=== PATIENT | female | born 1960 | race Caucasian/White ===

== ENCOUNTER 2018-06-25 11:06 | Emergency (ER) | payer OTHER ==
[2018-06-25 11:16] VITALS: BP 128/76
--- OUTSIDE RECORDS SUMMARY | 2018-06-25 11:27 | XMS REPORT ---
:1960 External Reference #:[id number] Author Organization [facility] Address [address] [place] [address] Phone [phone] Care Team Providers Name Role Phone Reyna Colon M.D. Care Team Information Ux Ui Designer Unavailable Reyna Colon M.D. Primary Care Physician Unavailable Payers Type Date Identification Numbers Payment Provider Subscriber Health Maintenance Policy Number: [id number] [facility] Maximo Duran Organization (HMO) Group Number: [id number] [address] PayID: [id number] [place] [address] Medigap Part B Effective: 10/05/2017 Policy Number: Toribio Duran [id number] PayID: [id number] [address] [place] [address] Problems Date Description Provider Status Onset: 04/22/2017 Osteopenia Reyna Colon M.D. Active Onset: 02/18/2013 Nonvenomous insect bite of thigh David Ram M.D. Resolved without infection Resolved: 09/05/2016 Family History Date Family Member(s) Problem(s) Comments Father due to Unknown Causes () - went back to [facility] after her mother . Mother Hypertension Mother due to COPD () - age 69 Mother Chronic Obstructive Pulmonary Disease (COPD) First Brother healthy. [place] Social History Type Date Description Comments Marital Status Patient is , works at [employer]. Occupation screenwriter [employer] Cigarette Use Never Smoked Cigarettes ETOH Use Social Alcohol a few glasses of wine on the weekends. Smoking Patient has never smoked Exercise Type/Frequency Does aerobics 3 x/week judo Current 2x a week, walks the dogs daily. Allergies, Adverse Reactions, Alerts Date Description Reaction Status Severity Comments 04/22/2017 Omeprazole severe NORMAN active Medications Medication Date Status Form Strength Qnty SIG Indications Ordering Provider Multivitamins Active Capsules 1 po qd Unknown /0000 Vitamin D 00 Active Tablets 1000Unit 1 po qd Unknown /0000 Glucosamine Active Capsules daily Unknown Chondroitin /0000 Beano Active Tablets prn Unknown / Doxycycline 07/29 Hx Tablets 100mg 2tabs 2 by mouth by mouth Isaiah, - x1 M.D. 06/11 No Active 09/05 Hx Unknown Medications /2015 - 09/05 Omeprazole 09/05 Hx Capsules 40mg 30cap take [address] cm capsule by Isaiah, - mouth M.DClifford 12/02 morning, 30 minutes before meal Clotrimazole/Betam 07/25 Hx Cream 1-0.05% 30gm apply to 110.5 Sveta ethasone /2013 affected Sheng, Dipropionate - area twice CURATOR 09/05 a day /2015 No Active 04/05 Hx Unknown Medications /2012 - 07/25 Methylprednisolone 03/29 Hx Tablets 4mg 1pk as 692.6 Teetee Dose Pack /2012 directed [place] Afnp-C 04/05 No Active 02/18 Hx Unknown Medications /2012 - 02/18 Doxycycline 02/18 Hx Capsules 100mg 14cap use 2 David Myers cl s Pills AT [facility], - Once M.D. 03/29 Doxycline 08/05 Hx Capsules 100mg 2caps 2 po 910.4 Elton Suarez /2009 Bridget, - M.DClifford 08/06 PT 06/29 Hx R Knee Karis /2006 Pain--HX Faizan, - Old Injury Afnp-C 08/13 Please Evaluate And Treat For Pain Relief And Prevention Knee Immobilizer 03/19 Hx use as Karis /2006 directed-- Faizan - R Knee Afnp-C 04/02 Injury /2006 Physical Therapy 12/26 Hx treatment Andre Myers /2004 and Dao - talita M.DClifford 12/16 For Right /2006 Clavicle Immunizations CPT Code Status Date Vaccine Lot # [id number] Given 08/14/2016 Influenza Vac, Quadriv[place], [place] [address] Given 07/26/2015 Influenza Vac, [place]riv[place], [place] [address] Given 07/25/2014 DO Not Use Split Influenza Virus Vaccine [id number] Given 08/12/2012 DO Not Use Split Influenza Virus Vaccine 85071 Given 08/08/2011 DO Not Use Split Influenza Virus Vaccine 15700 Given 08/05/2010 DO Not Use Split Influenza Virus Vaccine [id number] Vital Signs Date Vital Result Comment 06/11/2018 BP Systolic 120 mmHg BP Diastolic 68 mmHg Heart Rate 80 /min Body Temperature 98.7 F Respiratory Rate 18 /min Height 64 inches 5'4" Weight 132.00 lb BMI (Body Mass Index) 22.7 kg/m2 04/22/2017 BP Systolic 118 mmHg BP Diastolic 80 mmHg Heart Rate 102 /min Body Temperature 97.9 F Respiratory Rate 16 /min Height 64 inches 5'4" measured 04/22/17 Weight 135.25 lb BMI (Body Mass Index) 23.2 kg/m2 Right Visual Acuity Distance 20/20 corrected Left Visual Acuity Distance 20/20 corrected 09/05/2016 BP Systolic 160 mmHg BP Diastolic 80 mmHg Heart Rate 96 /min Body Temperature 98.2 F Height 64.25 inches 5'4.25" Weight 134.00 lb BMI (Body Mass Index) 22.8 kg/m2 07/25/2014 BP Systolic 130 mmHg BP Diastolic 86 mmHg Heart Rate 112 /min Body Temperature 97.9 F Respiratory Rate 16 /min Height 64.25 inches 5'4.25" Weight 136.00 lb BMI (Body Mass Index) 23.2 kg/m2 03/29/2013 BP Systolic 110 mmHg BP Diastolic 78 mmHg Heart Rate 84 /min Body Temperature 97.8 F Height 64.25 inches 5'4.25" Weight 137.00 lb BMI (Body Mass Index) 23.3 kg/m2 02/18/2013 BP Systolic 140 mmHg BP Diastolic 86 mmHg Heart Rate 90 /min Body Temperature 97.4 F Respiratory Rate 17 /min Height 64.25 inches 5'4.25" Weight 136.00 lb BMI (Body Mass Index) 23.2 kg/m2 08/05/2010 BP Systolic 104 mmHg BP Diastolic 70 mmHg Heart Rate 84 /min Body Temperature 97.3 F Respiratory Rate 16 /min Height 64.25 inches 5'4.25" Weight 133.00 lb BMI (Body Mass Index) 22.6 kg/m2 03/28/2010 BP Systolic 124 mmHg BP Diastolic 60 mmHg Heart Rate 80 /min Body Temperature 98.2 F Respiratory Rate 16 /min Height 64.25 inches 5'4.25" Weight 138.00 lb BMI (Body Mass Index) 23.5 kg/m2 11/23/2009 BP Systolic 138 mmHg BP Diastolic 88 mmHg Heart Rate 100 /min Body Temperature 98.4 F Weight 137.00 lb 03/19/2007 BP Systolic 134 mmHg BP Diastolic 90 mmHg Heart Rate 96 /min Height 64.25 inches 5'4.25" 03/04/2007 BP Systolic 142 mmHg BP Diastolic 80 mmHg Heart Rate 88 /min Body Temperature 99.5 F Respiratory Rate 16 /min Height 64.25 inches 5'4.25" Weight 134.00 lb BMI (Body Mass Index) 22.8 kg/m2 12/16/2005 BP Systolic 110 mmHg BP Diastolic 70 mmHg Heart Rate 112 /min O2 % BldC Oximetry 99 % Height 64.25 inches 5'4.25" Weight 131.00 lb BMI (Body Mass Index) 22.3 kg/m2 12/10/2004 BP Systolic 142 mmHg BP Diastolic 92 mmHg Heart Rate 92 /min Height 64.25 inches 5'4.25" Weight 137.00 lb BMI (Body Mass Index) 23.3 kg/m2 Results Test Date Test Result H/L Range Note Comprehensive Metabolic Prof 05/28/2018 Sodium 138 mEq/L 134-149 Potassium 4.4 mEq/L 3.6-5.5 Chloride 101 mEq/L 94-112 Carbon Dioxide 27 mEq/L 21-32 Glucose 98 mg/dL 70-105 BUN 13 mg/dL 6-26 Creatinine 0.9 mg/dL 0.6-1.4 BUN/Creat Ratio 14.4 CALC 8.0-36.0 Calcium 8.9 mg/dL 8.6-10.2 Total Protein 6.6 g/dL 6.4-8.3 Albumin 4.5 g/dL 3.8-5.5 Globulin 2.1 g/dL 2.0-4.8 A/G Ratio 2.1 CALC 0.6-2.3 Alk. Phosphatase 62 U/L 30-110 Alt (SGPT) 21 U/L 7-35 Ast (Sgot) 24 U/L 5-34 Total Bilirubin 1.3 mg/dL 0.2-1.3 GFR Non- >60 ml/min/1.73m^ >=60 GFR >60 ml/min/1.73m^ >=60 Lipid Profile 05/28/2018 Cholesterol 204 mg/dL High 120-200 Triglycerides 58 mg/dL 30-200 HDL Cholesterol 60 mg/dL 30-85 LDL (Calculated) 132 CALC High 0-129 VLDL Cholesterol 12 mg/dL 0-50 HDL Risk Factor 3.4 CALC 0.0-4.4 CBC Electronic Fma 05/28/2018 WBC 4.4 x10^3/UL 4.0-10.0 RBC 4.01 x10^6/UL 3.93-6.00 HGB 12.7 g/dL 12.0-17.0 HCT 37 % 35-50 MCV 93.3 fL 80.0-95.0 MCH 31.7 pg 25.6-32.2 MCHC 34.0 g/dL 32.2-36.0 RDW-CV 12.2 % 11.6-14.4 PLT 256 x10^3/UL 163-400 MPV 12.0 fL 9.4-12.4 William# 2.12 x10^3/UL 1.56-6.13 Lymph# 1.70 x10^3/UL 1.18-3.74 Iredell# 0.38 x10^3/UL 0.24-0.82 Eos # 0.1 x10^3/UL 0.0-0.5 Baso # 0.04 x10^3/UL 0.01-0.08 William% 48.4 % 34.0-70.0 Lymph % 38.8 % 20.0-52.0 Iredell% 8.7 % 5.0-12.0 Eos% 3.0 % 0.7-7.0 Baso% 0.9 % 0.1-1.2 Laboratory test finding 05/28/2018 TSH 3.65 mIU/L 0.50-6.00 Comprehensive Metabolic Prof 04/15/2017 Sodium 144 mEq/L 134-149 Potassium 4.2 mEq/L 3.6-5.5 Chloride 105 mEq/L 94-112 Carbon Dioxide 25 mEq/L 21-32 Glucose 92 mg/dL 70-105 BUN 18 mg/dL 6-26 Creatinine 0.9 mg/dL 0.6-1.4 BUN/Creat Ratio 20.0 CALC 8.0-36.0 Calcium 9.7 mg/dL 8.6-10.2 Total Protein 7.2 g/dL 6.4-8.3 Albumin 4.6 g/dL 3.8-5.5 Globulin 2.6 g/dL 2.0-4.8 A/G Ratio 1.8 CALC 0.6-2.3 Alk. Phosphatase 57 U/L 30-110 Alt (SGPT) 19 U/L 7-35 Ast (Sgot) 23 U/L 5-34 Total Bilirubin 1.1 mg/dL 0.2-1.3 GFR Non- >60 ml/min/1.73m^ >=60 GFR >60 ml/min/1.73m^ >=60 Lipid Profile 04/15/2017 Cholesterol 209 mg/dL High 120-200 1 Triglycerides 90 mg/dL 30-200 HDL Cholesterol 57 mg/dL 30-85 LDL (Calculated) 134 CALC High 0-129 VLDL Cholesterol 18 mg/dL 0-50 HDL Risk Factor 3.7 CALC 0.0-4.4 Complete Blood Count 04/15/2017 WBC 4.4 x10^3/UL 3.6-9.6 RBC 4.34 x10^6/UL 3.90-5.70 HGB 13.9 g/dL 12.1-17.2 HCT 40 % 36-50 MCV 93.0 fL 82.2-97.4 MCH 32.1 pg 27.6-33.3 MCHC 34.4 g/dL 33.0-35.5 RDW 12.9 % 11.6-13.7 PLT 255 x10^3/UL 150-400 MPV 9.4 fL 7.4-10.4 Gran # 2.7 x10^3/UL 1.5-7.2 Lymph# 1.5 x10^3/UL 0.7-4.9 Iredell# 0.2 x10^3/UL 0.1-0.9 Gran % 59.0 % 42.2-75.2 Lymph % 35.7 % 20.5-51.1 Iredell% 5.3 % 1.7-9.3 Laboratory test finding 04/15/2017 TSH 3.68 mIU/L 0.50-6.00 Laboratory test finding 02/16/2017 Clotest SEE RESULT BELOW 2 Surgical Pathology SEE RESULT BELOW 3 Complete Blood Count 09/08/2016 WBC 5.5 x10^3/UL 3.6-9.6 RBC 4.31 x10^6/UL 3.90-5.70 HGB 13.6 g/dL 12.1-17.2 HCT 40 % 36-50 MCV 94.0 fL 82.2-97.4 MCH 31.5 pg 27.6-33.3 MCHC 33.6 g/dL 33.0-35.5 RDW 13.3 % 11.6-13.7 PLT 256 x10^3/UL 150-400 MPV 8.0 fL 7.4-10.4 Gran # 3.8 x10^3/UL 1.5-7.2 Lymph# 1.6 x10^3/UL 0.7-4.9 Iredell# 0.1 x10^3/UL 0.1-0.9 Gran % 66.4 % 42.2-75.2 Lymph % 30.3 % 20.5-51.1 Iredell% 3.3 % 1.7-9.3 Comprehensive Metabolic Prof 09/08/2016 Sodium 143 mEq/L 134-149 Potassium 4.5 mEq/L 3.6-5.5 Chloride 99 mEq/L 94-112 Carbon Dioxide 26 mEq/L 21-32 Glucose 105 mg/dL 70-105 BUN 19 mg/dL 6-26 Creatinine 1.0 mg/dL 0.6-1.4 BUN/Creat Ratio 19.0 CALC 8.0-36.0 Calcium 10.2 mg/dL 8.6-10.2 Total Protein 7.6 g/dL 6.4-8.3 Albumin 4.8 g/dL 3.8-5.5 Globulin 2.8 g/dL 2.0-4.8 A/G Ratio 1.7 CALC 0.6-2.3 Alk. Phosphatase 73 U/L 30-110 Alt (SGPT) 14 U/L 7-35 Ast (Sgot) 17 U/L 5-34 Total Bilirubin 1.0 mg/dL 0.2-1.3 GFR Non- >60 ml/min/1.73m^ >=60 GFR >60 ml/min/1.73m^ >=60 Lipid Profile 09/08/2016 Cholesterol 234 mg/dL High 120-200 Triglycerides 92 mg/dL 30-200 HDL Cholesterol 63 mg/dL 30-85 LDL (Calculated) 153 CALC High 0-129 VLDL Cholesterol 18 mg/dL 0-50 HDL Risk Factor 3.7 CALC 0.0-4.4 Laboratory test finding 09/08/2016 Magnesium, Serum 2.2 mEq/L High 1.2- 2.1 TSH 4.87 mIU/L 0.50-6.00 4 Laboratory test 09/08/2016 Hemoglobin A1c (Fma) 5.7 % 4.1-5.7 finding Laboratory test 03/28/2013 Tick Testing, B Negative 5 finding [facility] Surgical Pathology 05/31/2010 Surgical Pathology 6 <SEE NOTE> Laboratory test 03/28/2010 B12 996 pg/mL 230-1050 finding Methylmalonic Acid 03/28/2010 Methylmalonic Acid, 181 nmol/L 73-376 7 Serum Laboratory test 03/28/2010 Homocysteine 4.8 umol/L 0.0-15.0 finding Comprehensive 11/23/2009 Albumin 5.1 g/dL 3.8-5.5 Metabolic Prof Alk. Phos. 58 U/L 30-110 Alt (SGPT) 15 U/L 7-35 Ast (Sgot) 17 U/L 5-34 BUN 17 mg/dL 6-26 Calcium 9.8 mg/dL 8.6-10.2 Chloride 105 mEq/L 94-112 Creatinine 0.9 mg/dL 0.6-1.4 Carbon Dioxide 25 mEq/L 21-32 Glucose 114 mg/dL High 70-105 8 Sodium 141 mEq/L 134-149 Total Bilirubin 0.6 mg/dL 0.2-1.3 Total Protein 7.8 g/dL 6.3-8.1 Potassium 3.9 mEq/L 3.6-5.5 Globulin 2.7 g/dL 2.0-4.8 A/G Ratio 1.8 Calc 0.6-2.2 BUN/Creat Ratio 19.2 Calc 8.0-36.0 Laboratory test finding 11/23/2009 TSH 2.41 mIU/L 0.50-6.00 CBC (Fma) 11/23/2009 WBC 8.5 3.6-9.6 RBC 4.38 3.90-5.70 Hemoglobin (Fma/CMC/CTX) 13.6 g/dL 12.1 - 17.2 Hematocrit (Fma/CMC/CTX) 43.2 % 36.1 - 50.3 Mean Corpuscular Vol 98.6 High 82.2-97.4 Mean Corpuscular Hemaglobin 31.1 27.6-33.3 Mean Corpuscular Hemo Concen 31.5 Low 33.0-36.0 Platelets 285 10^3/ul 150-400 Lymph% 17.2 Low 20.5-51.1 Mixed% 3.9 Neutrophils % 78.9 RDW 12.9 11.6-13.7 Mean Platelet Volume 12.5 High 7.4-10.4 Lipid Profile (Trig/Chol/HDL) 10/23/2009 Triglyceride 136 mg/dL 40-200 Cholesterol 207 mg/dL High Less Than 200 9 High Density Lipoprotein 53 mg/dL 40-60 10 Cholesterol/HDL Ratio 3.91 AVERAGE 1-4.44 Low Density Lipoprotein 127 mg/dL High Less Than 100 11 Surgical Pathology 04/08/2007 Surgical Pathology <SEE 12 NOTE> Complete Blood 03/04/2007 WBC 7.2 x10\\S\\3/uL 3.6-9.6 Count Gran# 5.8 x10\\S\\3/uL 1.5-7.2 Gran% 81.1 % High 42.2-75.2 HCT 38 % 36-50 HGB 13.0 g/dL 12.1-17.2 Lymph# 1.2 x10\\S\\3/uL 0.7-4.9 Lymph% 17.0 % Low 20.5-51.1 MCH 32.3 pg 27.6-33.3 MCV 94.9 fL 82.2-97.4 MCHC 34.0 g/dL 33.0-35.5 Mo# 0.1 x10\\S\\3/uL 0.1-0.9 Mo% 1.9 % 1.7-9.3 MPV 11.4 fL High 7.4-10.4 PLT 267 x10\\S\\3/uL 150-400 RBC 4.04 x10\\S\\6/uL 3.90-5.70 RDW 12.7 % 11.6-13.7 Comprehensive Metabolic Prof 03/04/2007 Albumin 4.3 g/dL 3.8-5.5 Alk. Phos. 51 U/L 30-110 Alt (SGPT) 18 U/L 7-35 Ast (Sgot) 19 U/L 5-34 BUN 21 mg/dL 6-26 Calcium 9.5 mg/dL 8.6-10.2 Chloride 98 mEq/L 94-112 Creatinine 1.0 mg/dL 0.6-1.4 Carbon Dioxide 24 mEq/L 21-32 Glucose 111 mg/dL High 70-105 Sodium 141 mEq/L 134-149 Total Bilirubin 1.1 mg/dL 0.2-1.3 Total Protein 7.1 g/dL 6.3-8.1 Potassium 4.2 mEq/L 3.6-5.5 Globulin 2.8 g/dL 2.0-4.8 A/G Ratio 1.5 Calc 0.6-2.2 BUN/Creat Ratio 21.6 Calc 8.0-36.0 Endomysial AB,Iga 03/04/2007 Endomysial Antibody IgA Negative Negative Laboratory test finding 03/04/2007 Stool For Fat Screen NORMAL SCREEN Negative Stool For Polys 03/04/2007 Stool For WBCS (Polys) NONE SEEN Negative Fecal Fat Screen 03/04/2007 Stool Color BROWN Stool Consistency SOFT Stool Form SEMI-FORMED Laboratory test 03/04/2007 Fungal Cult [TRICHOSPORON MU <SEE 13 finding Other Sources NOTE> Laboratory test 12/16/2005 [facility] BMP;TROP;CBC See Image finding Report 1 consistent w/ previous results 2 SEE RESULT BELOW Name: MAIDA DURAN : [address]: Khris Dumont MD Acct: [id number] Unit: [id number] AGE: 57 Location: ENDO Re02/16/17 SEX: F Status: REG REF SPEC: [id number] RAFA: 02/16/17-[address] [facility] [address]: Khris Dumont MD REQ: [id number] RECD: 02/16/17 STATUS: CONG SCHMID DR: Reyna Colon MD _ SOURCE: GAS ANTRUM SPDESC: ORDERED: Clotest Procedure Result Reported Site Clotest Final 02/17/17- 0752 ML Clotest Negative * ML - MAIN LAB (PSC1) . END OF REPORT * ML=Testing performed at Main Lab DEPARTMENT OF PATHOLOGY, [address] [place] [address] Patrick Ordonez M.D. Director LASHONDA # [id number] 3 SEE RESULT BELOW Name: MAIDA DURAN : [address]: Khris Dumont MD Acct: [id number] Unit: [id number] AGE: 57 Location: ENDO Re02/16/17 SEX: F Status: REG REF SPEC: [id number] RAFA: 02/16/17-[address] [facility] [address]: Khris Dumont MD REQ: [id number] RECD: 02/16/171066 STATUS: KLEBER SCHMID DR: Reyna Colon MD _ ORDERED: LEVEL 4/2 FINAL DIAGNOSIS 1. Duodenum, biopsy: -- Benign small intestinal mucosa with no significant pathologic abnormalities. -- No evidence of villous blunting or increased intraepithelial lymphocytes. 2. Colon, rectum, biopsy: -- Hyperplastic polyp. CLINICAL HISTORY Lower upper quadrant jayne POST-OPERATIVE DIAGNOSIS Esophagus - normal; stomach - normal, biopsied; duodenum - normal, biopsied. Colonoscopy to terminal ileum - rectal polyp biopsied GROSS DESCRIPTION 1. The specimen is received in formalin labeled, Biopsy Duodenum, and consists of a 0.6 x 0.2 x 0.1 cm raymond-pink irregular to polypoid soft tissue fragment which is entirely submitted in one cassette. 2. The specimen is received in formalin labeled, Biopsy Rectal Polyp, and consists of two raymond-white irregular to polypoid soft tissue fragments measuring 0.2 x 0.1 x 0.1 cm and 0.5 x 0.2 x 0.2 cm which are entirely submitted in one cassette. Signed (signature on file) Sveta Gaytan MD 1204 END OF REPORT * ML=Testing performed at Main Lab DEPARTMENT OF PATHOLOGY, [address] [place] [address] Patrick Ordonez M.D. Director [facility] # [id number] FASTING 5 Tick testing does not diagnose Lyme disease in humans. Results indicate only whether or not B. burgdorferi was detected in the tick. If you believe you have any symptoms of Lyme disease consult your physician immediately. 6 --- RUN DATE: 06/04/10 [facility] NMI LIVE PAGE 1 RUN TIME: 3375 Specimen Inquiry RUN USER: INTERFACE -- Name: MAIDA DURAN Status: REG REF Re05/31/10 Age/Sex: 50/F Unit#: [id number] [facility] [birth year] -- Specimen: [id number] SOUT Spec Date: 05/31/[address]: Andriy parks MD Spec Type: SURGICAL P Received: 06/03/10 Copies to: Elton edgar MD SPECIMEN EXCISION SKIN LESION LEFT LATERAL ARM HISTORY PRE-OP DIAGNOSIS: Rule out dysplastic nevus CLINICAL INFORMATION: Changing pigmented macule GROSS DESCRIPTION The specimen is received in formalin labelled Maida Duran, Excision Skin Lesion Left Lateral Arm, and consists of a skin excision measuring 0.5 x 0.4 x 0.4 cm. with a raymond-white skin and a dark brown macular lesion located in the center of the specimen measuring up to 0.3 cm. The specimen is bisected and submitted entirely, one cassette. DIAGNOSIS Skin, left lateral arm, excision: A. Solar lentigo. B. No evidence of melanocytic proliferation. Signed Electronically by: WADE MCDANIELS 06/04/10 1455 -- -- DEPARTMENT OF PATHOLOGY, [address] [place] [address] [facility] Permit #[id number] Patrick Ordonez M.D. Director Wade Mcdaniels M.D. Marine Fire[employer] Dir rodriguez -- 7 The reference range for methylmalonic acid has been set at +3sd above the mean for healthy blood bank donors. In the clinical assessment of patients with megaloblastic anemias a cutoff of +3sd provides greater specificity in the diagnosis of the vitamin deficiency states, despite the sacrifice of some sensitivity. 8 RESULT SARAH'D 9 CHOLESTEROL INTERPRETATION: Desirable: Less than 200 MG/DL Borderline-High Risk: 200-239 MG/DL High-Risk: 240 MG/DL and over 10 HDL INTERPRETATION: Undesirable: High Risk: Less than 40 MG/DL Desirable: Low Risk: Greater than 60 MG/DL 11 LDL INTERPRETATION: Low Risk Optimal Level: LDL Less than 100 MG/DL Near or Above Optimal: LDL 100-129 MG/DL Borderline High Risk: LDL 130-159 MG/DL High Risk: LDL 160-189 MG/DL Very High Risk: LDL Greater than 189 MG/DL 12 ---- RUN DATE: 04/09/07 [facility] NMI LIVE PAGE 1 RUN TIME: 1529 Specimen Inquiry RUN USER: INTERFACE [id number] MAIDA DURAN 47/F <REG REF 04/08> ([id number]) Khris Lowery MD -- Specimen: [id number] SOUT Spec Date: 04/08/[address]: Khris tolbert MD Spec Type: SURGICAL P Received: 04/08/07-7952 Copies to: Elton edgar MD SPECIMEN BIOPSY COLON POLYP AT 25 CM. HISTORY CLINICAL INFORMATION: Patient for screening colonoscopy with increased ga s, loose stools, and hematochezia GROSS DESCRIPTION The specimen is received in formalin labelled Maida Duran, Biopsy Colon Polyp at 25 cm., and consists of one, 0.3 cm. raymond bit. Total, one block. DIAGNOSIS Colon, polyp at 25 cm., biopsy - Hyperplastic polyp. Signed Electronically by: GWENDOLYN GREWAL MD 04/09/07 1528 -- -- DEPARTMENT OF PATHOLOGY, [address] [place] [address] [facility] Permit #[id number] Gwendolyn Grewal II, M.D. Director Alem Serrano irector -- 13 [TRICHOSPORON MUCOIDES] NO ADDITIONAL GROWTH AFTER 3 WEEKS TRICHOSPORON MUCOIDES Procedures Date CPT Code Description Status Comment 06/11/2018 21287 [facility] Completed 10/09/2017 Mammogram Completed 04/22/2017 11700 [facility] Completed 04/22/2017 96643 Vision Test- screening test of visual Completed acuity, quantitative, bila 10/05/2016 Colonoscopy Completed normal 10 years 09/17/2016 Mammogram Completed 09/05/2016 44818 Electrocardiogram Complete Completed 04/24/2015 Mammogram Completed 12/22/2013 Mammogram Completed 11/09/2012 Mammogram Completed 12/16/2005 88093 Pulse Oximetry Completed 12/16/2005 04299 Electrocardiogram Complete Completed Encounters Type Date Location Provider CPT E/M Dx Office Visit 09/05/2016 3:30p [facility] Reyna Colon M.D. 02379 R00.2 K21.9 Office Visit 07/25/2014 11:30a Main Office INDIO Pires 28924 110.5 V04.81 Office Visit 03/29/2013 12:45p Main Office David Muir 24593 692.6 Office Visit 02/18/2013 3:00p Main Office David Ram M.D. 02763 916.4 E906.4 Office Visit 08/05/2010 1:00p [facility] Elton Gill M.D. 36934 910.4 V04.81 v04.81 Office Visit 03/28/2010 4:40p Main Office Elton Gill M.D. 31562 529.0 238.2 Office Visit 11/23/2009 2:00p Main Office David Ram M.D. 28764 781.1 Office Visit 03/19/2007 2:15p Main Office Karis HilDavid ocasio 45434 844.9 Office Visit 03/04/2007 11:15a Main Office Elton Gill M.D. 05966 787.99 Office Visit 12/16/2005 8:30a Main Office Elton Gill M.D. 12483 786.50 785.9 Office Visit 12/10/2004 9:45a [facility] Teetee CortesKulwinder-C 87766 719.41 Plan of Care 06/11/2018 - Dariela Bazzi M.D.Z00.00 Encntr for general adult medical exam w/o abnormal findingsComments:You are in excellent general health. I recommend regular physical exams with attention to good nutrition and exercise, eye exams every other year, and dental exams twice yearly. ~B_~U_Goals:~u_~b_2 fresh fruits daily3 helpings of fresh green and multicolored vegetablesEat from the whole color spectrum. 40-60 Oz water daily~B_~U_MOVE YOUR BODY.~u_~b_ Bodies were made to be moved. exercise 30 minutes at least 4-5 times weeklyAllComments:~B_~U_Medication Management~b_~u_ Patient Understands medications she's taking? Yes No Are there Barriers to Adherence? Yes No Has the patient been asked about herbal supplements and therapies, and OTC meds? Yes No
[2018-06-25] MEDS ORDERED: Fluorescein Sod TOPICAL 0.6* 0.6 MG TEST OPHTHALMIC ONE (11:50)
[2018-06-25] MEDS ORDERED: Tetracaine 0.5% OPTH.SOL 4 ML* 1 DROP BTL ONE (11:50)
[2018-06-25] MEDS ORDERED: Tetan/Diph/Pertus SYR(Tdap)* 0.5 ML SYR(BOOSTRIX) use SYR IM ONE (13:35)
--- NOTE | 2018-07-26 09:48 | ED ---
Throat Pain/Nasal Congestion - HPI Summary HPI Summary: PATIENT SEEN 06/25/2018 FOR THE FOLLOWING EVENT AND CARE: Pt presents w/ Lt eye irritation since suspected injury prior to arrival. She reports she pulled down life jackets from a shelf on a boat and feels a possible FB fell into her eye. Eye has been irritated since and watering. Pt tried flushing at home without relief. Pt does wear glasses/contact lenses. Denies any changes in vision, facial pain/burning. Unsure of last tetanus vaccine. She is not sure what could've fallen from this area on the shelf but reports no chemical are stored there. - History of Current Complaint Chief Complaint: EDEyeProblem Time Seen by Provider: 06/25/18 11:50 Hx Obtained From: Patient - Allergies/Home Medications Allergies/Adverse Reactions: Allergies Allergy/AdvReac Type Severity Reaction Status Date / Time No Known Allergies Allergy Verified 07/02/18 21:32 PMH/Surg Hx/FS Hx/Imm Hx Previously Healthy: Yes Endocrine/Hematology History: Denies: Hx Anticoagulant Therapy, Hx Blood Disorders, Hx Diabetes, Autoimmune Disease - Cancer History Hx Chemotherapy: No Hx Radiation Therapy: No Infectious Disease History: No Infectious Disease History: Denies: Traveled Outside the [place] in Last 30 Days - Social History Occupation: Employed Full-time Alcohol Use: None Hx Substance Use: No Substance Use Type: Reports: None Hx Tobacco Use: No Smoking Status (MU): Never Smoked Tobacco Review of Systems Constitutional: Negative Eyes: Other - irritation Positive: Drainage ENT: Negative Cardiovascular: Negative Respiratory: Negative Gastrointestinal: Negative Positive: no symptoms reported Skin: Negative Neurological: Negative Negative: Headache Psychological: Normal All Other Systems Reviewed And Are Negative: Yes Physical Exam Triage Information Reviewed: Yes Vital Signs On Initial Exam: Initial Vitals Temp Pulse Resp BP Pulse Ox 97.6 F 68 14 128/76 99 06/25/18 11:13 06/25/18 11:13 06/25/18 11:13 06/25/18 11:13 06/25/18 11:13 Vital Signs Reviewed: Yes Appearance: Positive: Well-Appearing, Well-Nourished, Pain Distress - mild discomfort, concern but calm and good historian Skin: Positive: Warm, Skin Color Reflects Adequate Perfusion, Dry - no erythema , no ecchymosis, no vesicles of facial skin Head/Face: Positive: Normal Head/Face Inspection - atraumatic Eyes: Positive: EOMI - B/L, NOAH - B/L, Conjunctiva Inflammed - Lt eye - mild erythema, Discharge - Lt eye - watery, Other: - Lt eye: no ivon FB observed - no hyphema, no bleeding - pH 7; fluorescein exam reveals small area of cloudy uptake over cornea - no linear or deep areas of uptake; (-) Siedel's sign; pt tolerated well ENT: Positive: Normal ENT inspection, Hearing grossly normal, Pharynx normal Neck: Positive: Supple, Nontender Respiratory/Lung Sounds: Positive: Breath Sounds Present Cardiovascular: Positive: Normal Musculoskeletal: Positive: Normal, Strength/ROM Intact Neurological: Positive: Normal, Sensory/Motor Intact, Alert, Oriented to Person Place, Time, CN Intact II-III Psychiatric: Positive: Normal Procedures - Eye Procedure Left Alcaine Drops Administered: No - tetracaine Eye Irrigated w/ Saline (ccs): 3 Diagnostics - Vital Signs Vital Signs Temp Pulse Resp BP Pulse Ox 06/25/18 11:13 97.6 F 68 14 128/76 99 - Laboratory Lab Statement: Any lab studies that have been ordered have been reviewed, and results considered in the medical decision making process. Re-Evaluation - Re-Evaluation Second Eval Change: Improved EENT Course/Dx - Course Course Of Treatment: Lt eye appears to have irritation - no concern re: pH - advised flushing which she did here at irrigation sink w/ nurse prior to d/c w/ ophthalmic anbxs. Will monitor at home for danger s/sx and return to ED if worse. F/u w/ ophthomologist. - Diagnoses Provider Diagnoses: Left eye injury Discharge - Sign-Out/Discharge Documenting (check all that apply): Patient Departure - Discharge Plan Condition: Stable Disposition: HOME Prescriptions: Erythromycin OPHTH.OINT* [Ilotycin OPHTH.OINT*] 1 applic LEFT EYE TID #1 tube Patient Education Materials: Corneal Abrasion (ED) Forms: *Work Release Referrals: David Ballard MD [Medical Doctor] - Additional Instructions: Use medication as directed for eye Additionally you may apply ice and take ibuprofen with food as needed for pain *If same or worse, follow-up with Dr. Ballard or associate or return to ED - Billing Disposition and Condition Condition: STABLE Disposition: Home
== END 2018-06-25 13:53 | disposition home or self-care (01) ==
LOC: ED 11:06
DX: S05.92XA Unspecified injury of left eye and orbit, initial encounter (principal); X58.XXXA Exposure to other specified factors, initial encounter; Y93.89 Activity, other specified; Y92.9 Unspecified place or not applicable
CPT/HCPCS: 90471; 90715; 99282; A9270-GY

== ENCOUNTER 2018-07-02 21:18 | Emergency (ER) | payer OTHER ==
[2018-07-03] MEDS ORDERED: Amoxicillin/Clavulanate TAB* 875 MG PO ONE (01:12)
--- NOTE | 2018-07-03 01:13 | ED ---
Bite Injury/Animal - HPI Summary HPI Summary: Patient complains of dog bite today to left hand, left anterior thigh, left and right posterior calf. Dog belongs to tenant, is vaccinated per supervisor hanging and trimming. Patient denies any other pain, injuries or symptoms. Bleeding controlled. No anti- coag. - History of Current Complaint Chief Complaint: EDAnimalBite Stated Complaint: DOG BITE Time Seen by Provider: 07/03/18 00:55 Hx Obtained From: Patient Onset of Injury: Happened hours ago Type of Bite: Pet Has Animal Been Immunized?: Yes Severity Initially: Mild Severity Currently: Mild Pain Intensity: 3 Pain Scale Used: 0-10 Numeric Character: Abrasion/Laceration Associated Signs And Symptoms: Positive: Negative - Allergies/Home Medications Allergies/Adverse Reactions: Allergies Allergy/AdvReac Type Severity Reaction Status Date / Time No Known Allergies Allergy Verified 07/02/18 21:32 PMH/Surg Hx/FS Hx/Imm Hx Endocrine/Hematology History: Denies: Hx Anticoagulant Therapy Cardiovascular History: Denies: Hx Cardiac Arrest History: Denies: Hx Dialysis Neurological History: Denies: Hx CVA - Cancer History Hx Chemotherapy: No Hx Radiation Therapy: No Infectious Disease History: No Infectious Disease History: Denies: Traveled Outside the [place] in Last 30 Days - Social History Alcohol Use: None Substance Use Type: Reports: None Smoking Status (MU): Never Smoked Tobacco Review of Systems Constitutional: Negative Eyes: Negative ENT: Negative Cardiovascular: Negative Respiratory: Negative Gastrointestinal: Negative Genitourinary: Negative Musculoskeletal: Negative Skin: Other Neurological: Negative Psychological: Normal All Other Systems Reviewed And Are Negative: Yes Physical Exam - Summary Physical Exam Summary: Swelling and ecchymosis to left hand with 2 abrasions that have been scabbed over. Abrasion to left upper thigh and bilateral posterior calves. No indication for suturing. Triage Information Reviewed: Yes Vital Signs On Initial Exam: Initial Vitals Temp Pulse Resp BP Pulse Ox 97.2 F 94 16 150/87 98 07/02/18 21:31 07/02/18 21:31 07/02/18 21:31 07/02/18 21:31 07/02/18 21:31 Vital Signs Reviewed: Yes Appearance: Positive: Well-Appearing Skin: Positive: Warm Head/Face: Positive: Normal Head/Face Inspection Eyes: Positive: Normal Neck: Positive: Supple Respiratory/Lung Sounds: Positive: Clear to Auscultation Cardiovascular: Positive: Normal Abdomen Description: Positive: Nontender Musculoskeletal: Positive: Normal Neurological: Positive: Normal Psychiatric: Positive: Normal AVPU Assessment: Alert - [place] Coma Scale Best Eye Response: 4 - Spontaneous Best Motor Response: 6 - Obeys Commands Best Verbal Response: 5 - Oriented Coma Scale Total: 15 Diagnostics - Vital Signs Vital Signs Temp Pulse Resp BP Pulse Ox 07/02/18 23:31 97.5 F 81 16 129/73 100 07/02/18 21:31 97.2 F 94 16 150/87 98 - Laboratory Lab Statement: Any lab studies that have been ordered have been reviewed, and results considered in the medical decision making process. Bite Injury Course/Dx - Course Course Of Treatment: Patient complains of dog bite today to left hand, left anterior thigh, left and right posterior calf. Dog belongs to tenant, is vaccinated per supervisor hanging and trimming. Patient denies any other pain, injuries or symptoms. Bleeding controlled. No anti-coag. Physical exam: Swelling and ecchymosis to left hand with 2 abrasions that have been scabbed over. Abrasion to left upper thigh and bilateral posterior calves. No indication for suturing. PMS intact on left hand and bilateral lower extremities. Rx for Augmentin. Follow-up with primary care - Diagnoses Provider Diagnosis: Dog bite Discharge - Sign-Out/Discharge Documenting (check all that apply): Patient Departure - Discharge Plan Condition: Stable Disposition: HOME Prescriptions: Amoxicillin/Clavulanate TAB* [Augmentin TAB 875*] 875 mg PO BID #20 tab Patient Education Materials: Animal Bite (ED) Referrals: Reyna Colon MD [Primary Care Provider] - Additional Instructions: Take antibiotics as directed. Return to the ED for any new or worsening symptoms - Billing Disposition and Condition Condition: STABLE Disposition: Home
[2018-07-03 01:45] VITALS: BP 110/65
== END 2018-07-03 01:44 | disposition home or self-care (01) ==
LOC: ED 21:18
DX: S61.452A Open bite of left hand, initial encounter (principal); S71.152A Open bite, left thigh, initial encounter; S81.852A Open bite, left lower leg, initial encounter; S81.851A Open bite, right lower leg, initial encounter; W54.0XXA Bitten by dog, initial encounter; Y92.9 Unspecified place or not applicable
CPT/HCPCS: 99282; A9270-GY